=== PATIENT | male | born 1965 | race Caucasian/White ===

== ENCOUNTER 2022-08-01 18:09 | Emergency (ER) | payer OTHER | END 2022-08-01 19:22 | disposition home or self-care (01) | LOC: DL.ED 18:09 | DX: S01.01XA Laceration without foreign body of scalp, initial encounter (principal); I10 Essential (primary) hypertension; Z87.891 Personal history of nicotine dependence; W20.8XXA Other cause of strike by thrown, projected or falling object, initial encounter | CPT/HCPCS: 12002; 99282 ==